=== PATIENT | male | born 1975 ===

== ENCOUNTER 2018-07-26 11:19 | Emergency (ER) | payer MEDICAID, SELFPAY ==
[2018-07-26 11:20] VITALS: BMI 27.4
[2018-07-26 11:28] VITALS: BP 132/95; PULSE 108; RESP 18; TEMP 98.4; O2SAT 95
--- NOTE | 2018-07-26 11:35 | C.PDOC ---
History Of Present Illness 43 year old male presents to the emergency department requesting detox from alcohol and cocaine. Patient has multiple visits to the emergency department for the same reasons. REQUESTING ETOH COCAINE DETOX. 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 REMAINDER NEG Time Seen by Provider: 07/26/18 11:22 History Per: Patient History/Exam Limitations: no limitations Onset/Duration Of Symptoms: Hrs Current Symptoms Are (Timing): Still Present Suicide/Self Injury Attempted (Context): None Modifying Factor(s): Alcohol, Cocaine Associated Symptoms: denies: Suicidal Thoughts, Suicidal Plan Past Medical History Reviewed: Historical Data, Nursing Documentation, Vital Signs Vital Signs: Last Vital Signs Temp 98.4 F 07/26/18 11:27 Pulse 108 H 07/26/18 11:27 Resp 18 07/26/18 11:27 BP 132/95 H 07/26/18 11:27 Pulse Ox 95 07/26/18 11:27 - Medical History PMH: Anxiety, Depression Denies: HIV, Chronic Kidney Disease Surgical History: No Surg Hx Family History: States: No Known Family Hx - Social History Hx Alcohol Use: Yes Hx Substance Use: Yes Review Of Systems Except As Marked, All Systems Reviewed And Found Negative. Constitutional: Negative for: Fever, Chills Gastrointestinal: Negative for: Nausea Psych: Negative for: Suicidal ideation Physical Exam - Physical Exam Appears: Non-toxic, No Acute Distress Skin: Warm, Dry Head: Atraumatic, Normacephalic Eye(s): bilateral: Normal Inspection Oral Mucosa: Moist Neck: Normal, Supple Chest: Symmetrical, No Tenderness Cardiovascular: Rhythm Regular, No Murmur Respiratory: Normal Breath Sounds Gastrointestinal/Abdominal: Soft, No Tenderness, No Guarding, No Rebound Extremity: Normal ROM Neurological/Psych: Oriented x3, Normal Speech, Normal Cognition, No Other (acute intoxication) ED Course And Treatment O2 Sat by Pulse Oximetry: 95 (RA) Pulse Ox Interpretation: Normal Progress Note: Plan: Librium 100mg PO - Physician Consult Information Time Consulting Physician Contacted: 11:51 Outcome Of Conversation: D/W CRISIS, NO DETOX BEDS Disposition Counseled Patient/Family Regarding: Diagnosis, Need For Followup - Disposition Referrals: CAILIN LANZA [Provider Group] DTPAOLA HOLGUIN [Other] Disposition: HOME/ ROUTINE Disposition Time: 11:51 Condition: GOOD Instructions: Alcohol Abuse and Alcoholism (DC) Forms: [employer] (Gibraltarian) Print Language: KOSOVAN - Clinical Impression Clinical Impression: Alcohol abuse, Cocaine abuse - Scribe Statement The provider has reviewed the documentation as recorded by the Scribe (Arsenio Hanson) Provider Attestation: All medical record entries made by the Scribe were at my direction and personally dictated by me. I have reviewed the chart and agree that the record accurately reflects my personal performance of the history, physical exam, medical decision making, and the department course for this patient. I have also personally directed, reviewed, and agree with the discharge instructions and disposition.
== END 2018-07-26 12:24 | disposition home or self-care (01) ==
LOC: C.ER 11:19
DX: F10.10 Alcohol abuse, uncomplicated (principal); F14.10 Cocaine abuse, uncomplicated